=== PATIENT | male | born 1955 | race Caucasian/White ===

== ENCOUNTER 2017-08-29 05:27 | Day surgery (SDC) | payer OTHER ==
[~2017-08-29] VITALS: Ht 182.9 cm; Wt 102.1 kg
--- NOTE | ~2017-08-29 | OP ---
PATIENT NAME: ANATOLIY CONTRERAS MEDICAL RECORD: [id number] :57 [facility] DATE: SURGEON: SANDOR ALVARADO MD DATE OF OPERATION: 08/29/2017 SURGEON: Sandor Alvarado MD ANESTHESIA: General anesthesia by Dr. Valente Regan. PREOPERATIVE DIAGNOSIS: Obstructive benign prostatic hypertrophy. PROCEDURE: GreenLight laser transurethral resection of the prostate, power 80-120 johnson, total energy is 112,482 kilojoules, laser on time is 22 minutes and 4 seconds. BLOOD LOSS: Minimal. FINDINGS: Trilobar hyperplasia with a very large median lobe. Single ureteral orifices bilaterally. Trabeculated bladder with diverticula and cellules. No bladder tumors. CLINICAL HISTORY: This is a 61-year-old male referred by Dr. Cain for obstructive BPH. He has had problems voiding for several years. He has also developed a degree of renal failure with a creatinine of 1.44. He had an ultrasound of the abdomen and pelvis, which showed no hydronephrosis of either kidney. An enlarged prostate was noted. In terms of voiding, he has hesitancy, a very weak stream with postvoid dribbling. He does not feel empty after voiding. He has to void every hour on the hour during the daytime and he has nocturia times 5-6. There are also episodes of urgency with incontinence. He has been on doxazosin for several years without relief of his symptoms. When we measured his postvoid residual in the office it was 3 mL. On physical examination he had an enlarged prostate about 60 grams in size and it was benign in feeling without any nodules. He comes today for a GreenLight laser TURP. He is allergic to BEE VENOM. 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 DESCRIPTION OF PROCEDURE: The patient was given induction of general anesthesia. He was placed in the dorsal lithotomy position and prepped and draped. A laser resectoscope was used with a 30-degree lens for visualization. Penile urethra was nonobstructive. Prostatic urethra showed some enlargement of the lateral lobes, but the main site of obstruction seems to be the large median lobe. The lateral lobes do meet in the midline also. Going into the bladder, he has a heavily trabeculated bladder. Single ureteral orifices were seen on each side. No bladder tumors were seen. We kept our resection from the bladder neck to just proximal to the verumontanum. With the laser fiber on at 80 johnson, we resected in the zone in the left posterior channel between the median lobe and the left lateral lobe. When we got into the area of the posterior urethra just in front of the verumontanum, we encountered quite significant venous bleeding. Attempts to staunch this using the coagulation setting of the laser were unsuccessful. After several attempts to use the coagulation setting, I had to use the resection setting and just burn the bleeding tissue away. Going back to the bladder neck region away from the bleeding zone, I was able to resect down much of the median lobe and the left lateral lobe. Finally, we went into the groove between the right lateral lobe and the median lobe and also resected this down to the region just proximal to the verumontanum. Again, we encountered quite significant bleeding in the posterior urethra just proximal to OPERATIVE REPORT [id number] ANATOLIY CONTRERAS [place] the verumontanum. In order to control this, I had to just resect all of this posterior tissue away including the verumontanum. This finally got the bleeding under control. The right lateral lobe was resected down to the pseudocapsule. Finally, the median lobe was entirely reduced down to the pseudocapsule. We did not resect beyond the point where the verumontanum had been. At the end of the procedure, the prostatic urethra was somewhat irregular, but no active bleeding was seen. The scope was removed. Attempts to place a 22-[place]izen [place] 3-way Alt[place]irano catheter were difficult due to the irregularity of the prostatic urethra. I put the scope back in and put a Sensor wire into the bladder through the scope. The scope was then removed, leaving the wire in place. A 22-Citizen [place] nulato tip 3-way Altamirano catheter was then inserted over the wire into the bladder. Once the catheter was fully in the bladder, the balloon was inflated with 28 mL of sterile water. The wire was then removed entirely. The catheter plug was put into the inflow port of the 3-way Altamirano catheter. The catheter was put to bag drainage. The patient was awakened and brought to the recovery room. He will be going home today with the catheter. I will see him back in the office in 2 days' time to remove the catheter for a voiding trial. TRANSINT:[id number] Voice Confirmation ID: [id number] DOCUMENT ID: [id number] SANDOR ALVARADO MD at 1149 CC: [id number] DICTATION DATE: 08/29/17 1056 VENEER SAMPLE MAKER: 08/29/17 1112 [place] [id number] [place] [id number]
[~2017-08-29 05:27] MED LIST: ATIVAN0.5 MG PO; CARDURA4 MG PO; CELEXA40 MG PO; ZETIA10 MG PO
[2017-08-29 06:43] LABS: CARBON DIOXIDE 27.4 mmol/L (21.0-32.0); CREATININE - SERUM 1.4 mg/dL (0.6-1.3); POTASSIUM - SERUM 4.4 mmol/L (3.5-5.1)
[2017-08-29 06:45] LABS: HEMATOCRIT 43.8 % (42.0-54.0); MCH 31.8 pg (26.0-34.0); MCHC 34.2 g/dL (31.0-37.0); MEAN PLATELET VOLUME 11.6 fL (7.4-10.4); RBC 4.71 10x6/uL (4.20-6.10); RDW 12.9 % (11.5-14.5); WBC 5.1 10x3/uL (4.8-10.8)
[2017-08-29 07:30] VITALS: BP 128/74; Ht 182.9 cm; Wt 102.1 kg
== END 2017-08-29 12:40 | disposition home or self-care (01) ==
LOC: D.OPS 05:27
PROVIDERS: Anesthesiology
DX: N40.1 Benign prostatic hyperplasia with lower urinary tract symptoms (principal); N39.41 Urge incontinence; N13.8 Other obstructive and reflux uropathy; R39.11 Hesitancy of micturition; R35.1 Nocturia; R39.15 Urgency of urination; N32.89 Other specified disorders of bladder; N32.3 Diverticulum of bladder; Z01.812 Encounter for preprocedural laboratory examination

== ENCOUNTER → 2017-10-02 17:35 | Outpatient (CLI) | payer OTHER ==
[2017-08-29 07:30] VITALS: BMI 30.6
== END | disposition home or self-care (01) ==
LOC: D.LABREF 17:35
DX: N39.0 Urinary tract infection, site not specified (principal)

== ENCOUNTER → 2017-10-19 17:47 | Outpatient (CLI) | payer OTHER ==
[2017-08-29 07:30] VITALS: BMI 30.6
== END | disposition home or self-care (01) ==
LOC: D.LABREF 17:47
DX: N39.0 Urinary tract infection, site not specified (principal)

== ENCOUNTER → 2019-02-28 12:24 | Outpatient (CLI) | payer OTHER ==
[2017-08-29 07:30] VITALS: BMI 30.6
[~2019-02-28 12:24] MED LIST changes: +ANDROGEL5 GM TP; +HYDROCODON-ACE1 EAC7 PO; +KEFLEX500 MG PO; +VITAMIN D31000 UNIT PO
== END | disposition home or self-care (01) ==
LOC: D.MRI 12:24
PROVIDERS: ATTEND Nurse Practitioner Family
DX: R22.42 Localized swelling, mass and lump, left lower limb (principal)

== ENCOUNTER 2019-03-28 05:18 | Day surgery (SDC) | payer OTHER ==
[~2019-03-28] VITALS: Ht 182.9 cm; Wt 95.3 kg
[~2019-03-28 05:18] MED LIST changes: -ANDROGEL5 GM TP; -HYDROCODON-ACE1 EAC7 PO; -KEFLEX500 MG PO; -VITAMIN D31000 UNIT PO
[2019-03-28] MEDS ORDERED: VITAMIN D31000 UNIT PO (06:43)
[2019-03-28] MEDS ORDERED: ANDROGEL5 GM TP (06:44)
[2019-03-28 06:59] VITALS: BP 132/80; Ht 182.9 cm; Wt 95.3 kg
[2019-03-28] MEDS ORDERED: KEFLEX500 MG PO (08:47)
[2019-03-28] MEDS ORDERED: HYDROCODON-ACE1 EAC7 PO (08:47)
--- NOTE | 2019-03-28 09:33 | NUR ---
APPLYING ICE PACK TO LEFT LEG ORDERED
--- NOTE | 2019-03-28 10:27 | OP ---
PATIENT NAME: ANATOLIY CAST MEDICAL RECORD: [id number] :57 LOCATION:[facility] ADMISSION DATE: SURGEON: ZACARIAS HIGGINS DO DATE OF OPERATION: 03/28/2019 PROCEDURE PERFORMED: Excision of soft tissue mass on the left knee. PREOPERATIVE DIAGNOSIS: Soft tissue mass, left knee. POSTOPERATIVE DIAGNOSIS: Soft tissue mass, left knee. INDICATIONS: Mr. Cast is a 63-year-old male who has had a mass on his left knee just at the tibial tubercle on the lateral side for quite some time. He said it is quite painful and hits it often. An MRI was done, which showed about a cm really 0.8 mm mass just to the lateral aspect of the tibial tubercle, also showed a meniscal tear in the posterior horn of the medial meniscus, but he did not have any symptoms, did not wish to have anything done inside the knee, but he wanted the mass removed as it had been bothering him for years he said and it is quite painful. It did not look malignant on the MRI. Therefore, I told him I would excise it and send it to the lab to ensure there was not anything malignant. He was okay with that plan and signed the consent. He is aware of the risks of infection, recurrence of cyst or soft tissue mass, bleeding, damage to nerves and vessels, need for further surgery. He signed the consent. SURGEON: Zacarias Higgins DO PHARMACY CONSULTANT: Carlo Cook, certified surgical family medicine physician assistant. DESCRIPTION OF PROCEDURE: The patient was given 2 grams of Ancef preoperatively. He was then taken to the operative suite and laid in the supine position, given general anesthetic. LMA was placed. The left lower extremity was then prepped and draped in sterile fashion. Timeout was performed. Everyone was in agreement as to the correct side, site, patient, and procedure. Incision was then made over the mass, it was marked on the lateral aspect of the anterior knee, more anteriorly than lateral and an incision was made with a 15-blade scalpel. Dissection was made down to the mass and this was removed. It was put in a specimen cup and sent to the lab. He was then closed with 4-0 Monocryl in an inverted interrupted fashion. Steri-Strips placed across that. Adaptic, 4 x 4s, ABD, Webril, Juancho wrap was then placed on the knee and he was awakened and taken to recovery in stable condition. BLOOD LOSS: Minimal. COMPLICATIONS: None. TRANSINT:[id number] Voice Confirmation ID: [id number] DOCUMENT ID: [id number] OPERATIVE REPORT [id number] ANATOLIY CAST MICHAEL D, DO at 1027 CC: DANIELA JACOB [id number] DICTATION DATE: 03/28/19917 ACCOUNTING INSTRUCTOR: 03/28/1948 [facility] 03/28/19 [id number] [place] [address]
== END 2019-03-28 10:25 | disposition home or self-care (01) ==
LOC: D.PAN 05:18 → D.OPS 09:00 → D.PAN 09:45
PROVIDERS: ATTEND Orthopaedic Surgery
DX: M25.862 Other specified joint disorders, left knee (principal); R22.42 Localized swelling, mass and lump, left lower limb